=== PATIENT | male | born 1955 | race Caucasian/White ===

== ENCOUNTER 2016-10-03 15:34 | Emergency (ER) | payer OTHER ==
[~2016-10-03] VITALS: Ht 180.3 cm; Wt 111.7 kg
[~2016-10-03 15:34] MED LIST: ACETAMINOPHEN PO; AGGRENOX1 CAPSULE PO; ASPIR 8181 M1 PO; ASPIR-LOW81 MG PO; Aspirin E.C. PO; BISOPROLOL-HCT1 EAC2 PO; CALCIUM 600 +1 EAC1 PO; CARDURA2 M1 PO; CITRACAL + D C1 EACH PO; CLOPIDOGREL75 MG PO; Cardura PO; FISH OIL 1,2001 EAC4 PO; FLAX OIL1000 MG PO; FLONASE16 G1 BOTH NARES; FLOVENT DISKUS1 DIS2 IH; GARLIC1000 MG PO; GLUCOSAMINE 1,1 EAC1 PO; GLUCOSAMINE1000 MG PO; LEVAQUIN500 MG PO; LYRICA150 MG PO; LYRICA300 MG PO; MAGNESIUM OXID500 MG PO; MONTELUKAST SOD10 MG PO; MULTIVITAMIN1 EAC2 PO; NEXIUM40 MG PO; Nitrostat,NitroQuick SL; ODORLESS GARL1250 MG PO; OMEGA 3-6-9 11200 MG PO; OMEGA 3-6-91200 MG PO; OMEPRAZOLE40 M1 PO; ONE-A-DAY ESSE1 EAC1 PO; PLAVIX75 MG PO; PRILOSEC20 MG PO; PROBIOTIC1 EAC2 PO; PROVENTIL,2.5 MG/0.5 IH; PROVENTIL,2.5 MG/3 M IH; SIMVASTATIN10 MG PO; SINGULAIR10 MG PO; SYMBICORT60 INHALAT IH; TRICOR145 MG PO; TYLENOL ARTHRI650 M2 PO; TYLENOL ARTHRI650 MG PO; TYLENOL REGULA325 MG PO; Tricor PO; VENTOLIN HFA18 GM IH; VITAMIN D-32000 UNIT PO; VITAMIN D2000 INTUN PO; VITAMIN D31000 UNIT PO; VITAMIN D32000 UNIT PO; Vitamin D PO; ZIAC 5/6.251 TABLET PO; Ziac 5/6.25 PO
[2016-10-03 16:50] LABS: MCH 29.5 PG (29.0-34.0); MCHC 32.9 G/DL (30.0-36.0); MCV 89.5 FL (86-99); MEAN PLAT.VOLUME 10.7 uM^3 (9.0-12.4); PLATELET COUNT 209 K/uL (156-360); RBC DIS.WIDTH-CV 13.6 % (11.8-14.6); RBC DIS.WIDTH-SD 43.2 % (39-53); RED BLOOD COUNT 4.58 M/uL (4.00-5.50); WHITE BLOOD COUNT 4.9 K/uL (4.1-10.2)
[2016-10-03 17:03] LABS: CHLORIDE 107 mEq/L (99-109); POTASSIUM 4.4 mEq/L (3.7-5.4); SODIUM 141 mEq/L (136-147)
[2016-10-03 17:04] LABS: GLUCOSE 92 mg/dL (70-99)
[2016-10-03 17:06] LABS: ANION GAP 8 MEQ/L (2-14)
[2016-10-03 17:08] LABS: GFR ESTIMATE (CALCULATED) > 59 mL/min/
[2016-10-03 17:09] LABS: UREA NITROGEN (BUN) 16 mg/dL (9-23)
[2016-10-03 17:13] LABS: ADD MIUA? YES; BILIRUBIN NEGATIVE; BLOOD NEGATIVE; COLOR YELLOW ((YELLOW)); GLUCOSE (STRIP) NEGATIVE; KETONES NEGATIVE; LEUKOCYTES NEGATIVE; NITRITE NEGATIVE; PROTEIN (STRIP) NEGATIVE; SPECIFIC GRAVITY 1.016 (1.000-1.030); UROBILINOGEN 0.2 MG/DL (0.2-1.0)
[2016-10-03 17:20] LABS: BACTERIA NONE SEEN /HPF; EPITHELIAL CELLS RARE /HPF; MUCUS NONE SEEN /LPF; RED BLOOD CELLS 0-5 /HPF (0-5); UCUL ADDED? NO; WHITE BLOOD CELLS 0-5 /HPF (0-5)
[2016-10-03] MEDS ORDERED: NORCO 5/3251 TABLET PO (22:06)
[2016-10-03] MEDS ORDERED: CIPRO500 MG PO (22:19)
[2016-10-03 22:47] VITALS: BP 127/86
== END 2016-10-03 22:51 | disposition home or self-care (01) ==
LOC: EME 15:34
PROC: 0T9B30Z Drainage of Bladder with Drainage Device, Percutaneous Approach (ICD-10-PCS; principal; 2016-10-03)
DX: R33.9 Retention of urine, unspecified (principal); I10 Essential (primary) hypertension; Z79.82 Long term (current) use of aspirin
CPT/HCPCS: 80048; 81003; 85027; 99281; 99284; C2627

== ENCOUNTER 2017-12-02 15:07 | Emergency (ER) | payer OTHER ==
[~2017-12-02] VITALS: Ht 180.3 cm; Wt 110.5 kg
[~2017-12-02 15:07] MED LIST changes: +CIPRO500 MG PO; +NORCO 5/3251 TABLET PO
[2017-12-02 18:56] VITALS: BP 122/78
== END 2017-12-02 18:57 | disposition home or self-care (01) ==
LOC: EME 15:07
DX: S09.90XA Unspecified injury of head, initial encounter (principal); S70.01XA Contusion of right hip, initial encounter; W07.XXXA Fall from chair, initial encounter; I10 Essential (primary) hypertension; G89.29 Other chronic pain; M79.671 Pain in right foot; K21.9 Gastro-esophageal reflux disease without esophagitis; J45.909 Unspecified asthma, uncomplicated; R56.9 Unspecified convulsions; G43.909 Migraine, unspecified, not intractable, without status migrainosus; Z86.73 Personal history of transient ischemic attack (TIA), and cerebral infarction without residual deficits; Z90.49 Acquired absence of other specified parts of digestive tract; Z96.9 Presence of functional implant, unspecified; Z79.82 Long term (current) use of aspirin; Z88.6 Allergy status to analgesic agent; Z88.1 Allergy status to other antibiotic agents
CPT/HCPCS: 70450; 72125; 73502; 73552; 73564; 73590; 73610; 99281; 99284